=== PATIENT | male | born 1985 | race American Indian/Alaskan Native ===

== ENCOUNTER 2019-03-28 21:48 | Emergency (ER) | payer MEDICARE ==
[2019-03-28] MEDS ORDERED: ZOFRAN IV ONE (22:34)
[2019-03-28] MEDS ORDERED: NACL 0.9% 1000 ML 1,000 ML IV ONE (22:34)
[2019-03-28] MEDS ORDERED: TORADOL IV ONE (22:34)
--- NOTE | 2019-03-28 22:38 | Emergency Department Report ---
ED Abdominal Pain HPI - General Chief Complaint: Abdominal Pain Stated Complaint: ABD PAIN Time Seen by Provider: 03/28/19 22:26 Source: patient, EMS Mode of arrival: Stretcher Limitations: Physical Limitation - History of Present Illness Initial Comments: 34-year-old male, history of asthma, seizures, schizophrenia, presents to ED from [facility] with complaint of left lower quadrant pain. Patient states pain began 2 hours ago. He reports nausea and vomiting, constipation. Patient denies dysuria, hematuria, urinary frequency, fever. MD Complaint: abdominal pain Severity scale (0 -10): 9 - Related Data Previous Rx's Medication Instructions Recorded Last Taken Type Dicyclomine [Bentyl] 20 mg PO QID PRN #20 tablet 03/29/19 Unknown Rx Ondansetron [Zofran Odt] 4 mg PO Q8HR PRN #20 tab.rapdis 03/29/19 Unknown Rx Allergies Allergy/AdvReac Type Severity Reaction Status Date / Time tramadol Allergy Unknown Verified 03/28/19 22:15 ED Review of Systems ROS: Stated complaint: ABD PAIN Other details as noted in HPI ED Past Medical Hx - Past Medical History Hx Seizures: Yes Hx Asthma: Yes - Surgical History Additional Surgical History: L leg - Social History Smoking Status: Current Every Day Smoker - Medications Home Medications: Home Medications Medication Instructions Recorded Confirmed Last Taken Type Dicyclomine [Bentyl] 20 mg PO QID PRN #20 tablet 03/29/19 Unknown Rx Ondansetron [Zofran Odt] 4 mg PO Q8HR PRN #20 tab.rapdis 03/29/19 Unknown Rx ED Physical Exam - General Limitations: Physical Limitation ED Course Vital Signs 03/28/19 03/28/19 03/28/19 22:04 22:05 22:16 Temperature 98.3 F Pulse Rate 87 88 Respiratory 13 14 Rate Blood Pressure 125/68 Blood Pressure 125/63 [Left] O2 Sat by Pulse 100 100 100 Oximetry 03/28/19 03/28/19 03/28/19 22:30 22:46 23:00 Temperature Pulse Rate 91 H 81 76 Respiratory 16 10 L Rate Blood Pressure 132/63 132/63 120/76 Blood Pressure [Left] O2 Sat by Pulse 100 100 100 Oximetry 03/28/19 03/28/19 03/28/19 23:16 23:30 23:46 Temperature Pulse Rate 72 72 62 Respiratory 14 12 Rate Blood Pressure 120/76 99/59 99/59 Blood Pressure [Left] O2 Sat by Pulse 100 100 98 Oximetry - Reevaluation(s) Reevaluation #1: 03/29/19 00:48 Pt feeling much better. Comfortable, asleep on stretcher. ED Medical Decision Making - Lab Data Result diagrams: 03/28/19 22:43 03/28/19 22:43 - Radiology Data Radiology results: report reviewed, image reviewed - Differential Diagnosis diverticulitis, kidney stone, UTI Critical care attestation.: If time is entered above; I have spent that time in minutes in the direct care of this critically ill patient, excluding procedure time. ED Disposition Clinical Impression: Abdominal pain, acute, left lower quadrant Disposition: - TO HOME OR SELFCARE Is pt being admited?: No Condition: Stable Instructions: Acute Abdominal Pain (ED) Referrals: [facility] [Provider Group] - 3-5 Days [facility] [Provider Group] - 3-5 Days Time of Disposition: 00:50
[2019-03-28 23:06] LABS: Basophils % (Auto) 0.3 % (0.0-1.8); Eosinophils # (Auto) 0.2 K/mm3 (0.0-0.4); Eosinophils % (Auto) 1.6 % (0.0-4.3); Hematocrit 37.9 % (35.5-45.6); Hemoglobin 12.8 gm/dl (11.8-15.2); Lymphocytes # (Auto) 2.2 K/mm3 (1.2-5.4); Lymphocytes % (Auto) 19.5 % (13.4-35.0); Mean Corpuscular HGB Conc 34 % (32-34); Mean Corpuscular Volume 89 fl (84-94); Monocytes % (Auto) 8.9 % (0.0-7.3); Platelet Count 286 K/mm3 (140-440); Red Blood Count 4.27 M/mm3 (3.65-5.03); Red Cell Distribution Width 15.3 % (13.2-15.2)
[2019-03-28 23:19] LABS: Bilirubin,Urine NEG (Negative); Blood,Urine NEG (Negative); Color,Urine Straw (Yellow); Protein,Urine <15 mg/dL mg/dL (Negative); Urobilinogen,Urine < 2.0 mg/dL (<2.0); WBC,Urine < 1.0 /HPF (0.0-6.0)
[2019-03-28 23:24] LABS: Alanine Aminotransferase 17 units/L (7-56); Albumin 4.2 g/dL (3.9-5); BUN/Creatinine Ratio 19; Blood Urea Nitrogen 27 mg/dL (9-20); Calcium 8.8 mg/dL (8.4-10.2); Hemolysis Index 0
--- NOTE | 2019-03-29 00:46 | Cat Scan Report ---
CT abdomen pelvis w con INDICATION / CLINICAL INFORMATION: LLQ pain. TECHNIQUE: All CT scans at this location are performed using CT dose reduction for ALARA by means of automated e xposure control. COMPARISON: None available. FINDINGS: Limited lower thoracic images show no acute lung disease. A small hiatal hernia is identified. ABDOMEN: The liver, spleen, pancreas and kidneys are within normal limits. 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 No retroperitoneal or mesenteric adenopathy. No small bowel distention. Pelvis: No acute inflammatory changes are identified in the pelvis. Advanced degenerative changes are seen in both hips. IMPRESSION: 1. No acute abnormality. 2. Small hiatal hernia. Signer Name: Grey Mcrae MD Signed: 03/29/2019 12:41 AM Workstation Name: [id number]
[2019-03-29 02:20] VITALS: BP 116/66
== END 2019-03-29 02:21 | disposition home or self-care (01) ==
LOC: ED 21:48
DX: R10.32 Left lower quadrant pain (principal); R11.2 Nausea with vomiting, unspecified; J45.909 Unspecified asthma, uncomplicated; F17.200 Nicotine dependence, unspecified, uncomplicated; Z88.6 Allergy status to analgesic agent
CPT/HCPCS: 36415; 74177; 80053; 81001; 85025; 96361; 96374; 96375; 99284; J1885; J2405; J7030; Q9967